=== PATIENT | female | born 1955 | race Caucasian/White ===

== ENCOUNTER 2018-05-01 06:01 | Emergency (ER) | payer BC, OTHER ==
[2018-05-01] MEDS ORDERED: Ondansetron 4 MG/2 ML SDV IVPUSH ONE (06:39)
--- NOTE | 2018-05-01 06:57 | EDM.PDOC ---
<Shane Layton - Last Filed: 05/01/18 07:10> ED HPI GENERAL MEDICAL PROBLEM - General Chief Complaint: Flank Pain Stated Complaint: RT SIDE PAIN,NVD Time Seen by Provider: 05/01/18 06:30 Source of Information: Reports: Patient History Limitations: Reports: No Limitations - History of Present Illness INITIAL COMMENTS - FREE TEXT/NARRATIVE: 63 year old 4 para 2//, nonsmoker dietitian at [employer] has had a stressful one-week vacation to [place] with her son and [id number] and their children, started vomiting " The [id number] (noted by somewhat nasty") is difficult to get along with. So she's had a stressful vacation. She also is had shingles before and now,4 days ago, had the onset of pain associated with rash and right side of her body. Marleny returned from [place] . She has new lesions on the right side of abdomen and has right sided pain. She has used metformin tp treat nonalcoholic fatty liver disease. She has a past history of passing renal stones. Daughter has shared much this information me while patient is in the bathroom vomiting. Daughter is a pharmacist and is quite very knowledgeable about patient's history. Patient is on metformin to treat nonalcoholic fatty liver disease. She has lost 50 pounds with this medication and this helped her right sided abdominal discomfort that she has off-and-on and attributes to her nonalcoholic fatty liver disease. With food patient ate yesterday was [place] cheese and Captain crunch cereal right side flank pain Pain Score (Numeric/FACES): 10 - Related Data Allergies Allergy/AdvReac Type Severity Reaction Status Date / Time propoxyphene napsylate Allergy Airway Verified 02/26/13 19:47 [From Kraigt-N 100] Tightness Home Meds: Home Meds Aspirin [Regina Chewable] 81 mg PO DAILY 02/26/13 [History] FLUoxetine HCl [Prozac] 40 mg PO DAILY 02/26/13 [History] Phentermine HCl 15 mg PO DAILY 05/01/18 [History] Topiramate [Trokendi Xr] 50 mg PO DAILY 05/01/18 [History] metFORMIN [Glucophage] 500 mg PO BIDMEALS 03/15/19 [History] ED ROS GENERAL - Review of Systems Review Of Systems: ROS reveals no pertinent complaints other than HPI. Constitutional: Reports: Other (Patient's has moderate discomfort consequently her history is limited as of her general discomfort most of thehistory came from her daughter so I have limited review of system) ED EXAM, GENERAL - Physical Exam Exam: See Below Free Text/Narrative:: Patient's overweight reluctant to move and has limited exchange and history because of her right flank and right groin discomfort. She still is experiencing diarrhea and vomiting. Was in the bathroom for at least 20 minutes before he was able to see her. In general overweight. She lost 50 pounds she weighs approximately 190 pounds Exam Limited By: Other (Limited by her not wanting to say much because she has so much right flank pain and abdominal discomfort) General Appearance: Alert, Severe Distress Eye Exam: Bilateral Eye: Normal Inspection Ears: Normal External Exam Ear Exam: Bilateral Ear: Auricle Normal Nose: Normal Inspection Throat/Mouth: Normal Lips, Normal Teeth, Normal Gums, Normal Voice, No Airway Compromise, Other (Dry oropharynx) Head: Atraumatic, Normocephalic Neck: Normal Inspection, Supple, Non-Tender Respiratory/Chest: No Respiratory Distress, Lungs Clear, Normal Breath Sounds, No Accessory Muscle Use, Chest Non-Tender Peripheral Pulses: 1+: Radial (L) (Decreased pulse), Radial (R) GI/Abdominal: Normal Bowel Sounds, Soft, No Organomegaly, No Distention, No Abnormal Bruit, No Mass, Other (Marked right groin discomfort no palpable hernia ) (Female) Exam: Deferred Rectal (Female) Exam: Deferred Back Exam: CVA Tenderness (R), Other (Severe right flank discomfort with percussion) Extremities: Normal Inspection, Normal Range of Motion, Non-Tender, No Pedal Edema, Normal Capillary Refill, Other (No linear ropey vascular structures tenderness no pedal edema) Neurological: Alert, Oriented, CN II-XII Intact, Normal Cognition, Normal Gait, No Motor/Sensory Deficits Psychiatric: Other (Glib in her responses because she has was pain) Skin Exam: Warm, Dry, Intact, Normal Color, No Rash Lymphatic: No Adenopathy Course - Vital Signs Last Recorded V/S: Last Vital Signs Temp 36.4 C 05/01/18 06:01 Pulse 78 05/01/18 06:01 Resp 18 05/01/18 06:01 BP 132/114 H 05/01/18 06:01 Pulse Ox 96 05/01/18 06:01 - Orders/Labs/Meds Orders: Active Orders 24 hr Category Date Time Status Abdomen Pelvis wo Cont [CT] Stat Exams 05/01/18 07:04 Taken UA W/MICROSCOPIC [URIN] Urgent Lab 05/01/18 07:09 Ordered Sodium Chloride 0.9% [Saline Flush] Med 05/01/18 07:19 Active 10 ml FLUSH ASDIRECTED PRN Peripheral IV Insertion Adult [OM.PC] Routine Oth 05/01/18 06:45 Ordered Medication Orders Sodium Chloride (Saline Flush) 10 ml FLUSH ASDIRECTED PRN PRN Reason: Keep Vein Open Labs: Laboratory Tests 05/01/18 05/01/18 05/01/18 Range/Units 07:40 07:40 07:40 WBC 13.9 H (4.5-12.0) X10-3/uL RBC 4.66 (3.23-5.20) x10(6)uL Hgb 14.3 (11.5-15.5) g/dL Hct 43.3 (30.0-51.3) % MCV 92.9 (80-96) fL MCH 30.7 (27.7-33.6) pg MCHC 33.1 (32.2-35.4) g/dL RDW 12.2 (11.5-15.5) % Plt Count 216 (125-369) X10(3)uL MPV 7.8 (7.4-10.4) fL Add Manual Diff Yes Neutrophils % (Manual) 88 H (46-82) % Lymphocytes % (Manual) 10 L (13-37) % Monocytes % (Manual) 2 L (4-12) % Sodium 145 (135-145) mmol/L Potassium 3.7 (3.5-5.3) mmol/L Chloride 109 (100-110) mmol/L Carbon Dioxide 26 (21-32) mmol/L BUN 18 (7-18) mg/dL Creatinine 0.7 (0.55-1.02) mg/dL Est Cr Clr Drug Dosing 79.01 mL/min Estimated GFR (MDRD) > 60 (>60) BUN/Creatinine Ratio 25.7 H (9-20) Glucose 127 H (80-116) mg/dL Lactic Acid 1.1 (0.4-2.2) mmol/L Calcium 7.7 L (8.6-10.2) mg/dL Total Bilirubin 0.7 (0.1-1.3) mg/dL AST 47 H (5-25) IU/L ALT 26 (12-36) U/L Alkaline Phosphatase 102 (56-112) IU/L Total Protein 5.9 L (6.0-8.0) g/dL Albumin 3.3 (3.2-4.6) g/dL Globulin 2.6 g/dL Albumin/Globulin Ratio 1.3 Meds: Medications Generic Name Dose Route Start Last Admin Trade Name Freq PRN Reason Stop Dose Admin Sodium Chloride 10 ml 05/01/18 07:19 Saline Flush FLUSH ASDIRECTED PRN Keep Vein Open Discontinued Medications Generic Name Dose Route Start Last Admin Trade Name Freq PRN Reason Stop Dose Admin Hydromorphone HCl 2 mg 05/01/18 07:09 05/01/18 07:15 Dilaudid IVPUSH 05/01/18 07:10 2 mg ONETIME ONE Administration Sodium Chloride 1,000 mls @ 999 mls/hr 05/01/18 06:59 05/01/18 07:01 Normal Saline IV 05/01/18 07:59 999 mls/hr .BOLUS ONE Administration Ondansetron HCl 4 mg 05/01/18 06:39 05/01/18 06:55 Zofran IVPUSH 05/01/18 06:40 4 mg ONETIME ONE Administration - Re-Assessments/Exams Free Text/Narrative Re-Assessment/Exam: 05/01/18 07:26 She received Dilaudid 2 mg IV Zofran 4 mg IV, 1000 ml NS flush and was sent to x -ray to RO enal stone CT . If her vomiting stops start Flomax. (Recent [facility] Today literature review suggests Flowmax doesn't make a difference on the double -blind random-controlled study). Her case was discussed with Dr. Gilbert and care transferred to 7AM. Departure - Departure Time of Disposition: 06:45 (Working diagnosis :Very high probability of right renal stone causing right flank and right groin pain. She had marked groin discomfort with a soft abdomen and no suggestion of a right hernia area. No facial rash etiology indeterminate. History of stress. Previous history of renal stones. History of 50 pound weight loss with her metformin which she used to treat nonalcoholic fatty liver disease and her weight went from 240 pounds down 190 pounds. Recent stressful vacation. Patient's was signed out to Dr. Gilbert) Disposition: Home, Self-Care 01 Condition: Fair Clinical Impression: Right lower quadrant abdominal pain, Renal calculus, right, Nonalcoholic fatty liver disease, Acute gastroenteritis Depression Qualifiers: Depression Type: unspecified Qualified Code(s): F32.9 - Major depressive disorder, single episode, unspecified - Discharge Information *PRESCRIPTION DRUG MONITORING PROGRAM REVIEWED*: Not Applicable *COPY OF PRESCRIPTION DRUG MONITORING REPORT IN PATIENT NBA: Not Applicable Referrals: Varsha Dias, [facility] APPRENTICE [Primary Care Provider] - Forms: ED Department Discharge Additional Instructions: maintain good hydration, start with light diet then advance as tolerated, expect gradual resolution with current symptoms over the next 24-48 hrs and follow with your physician on Friday for re-check. may use over the counter Imodium if needed as directed. - My Orders Last 24 Hours: My Active Orders 05/01/18 06:45 Peripheral IV Insertion Adult [OM.PC] Routine 05/01/18 07:19 Sodium Chloride 0.9% [Saline Flush] 10 ml FLUSH ASDIRECTED PRN - Assessment/Plan Last 24 Hours: My Active Orders 05/01/18 06:45 Peripheral IV Insertion Adult [OM.PC] Routine 05/01/18 07:19 Sodium Chloride 0.9% [Saline Flush] 10 ml FLUSH ASDIRECTED PRN <Octavia Gilbert - Last Filed: 05/01/18 09:07> ED HPI GENERAL MEDICAL PROBLEM - General Source of Information: Reports: Patient History Limitations: Reports: No Limitations Course - Vital Signs Text/Narrative:: pt care was transferred from Dr Layton at time of shift change, pt now is comfortable after dilaudid , fluids and zofran, reslts of her labs and CT are now available and were explained to pt. pt has gastroenteritis and possible renal colic , she is stable for out pt mng and supportive mng was recommended. RX on hydrocodone and zofran were given , pt may use over the counter imodium if needed and to follow with PCP on Friday for re-check. Departure - Departure Time of Disposition: 09:04 - Discharge Information *PRESCRIPTION DRUG MONITORING PROGRAM REVIEWED*: Not Applicable *COPY OF PRESCRIPTION DRUG MONITORING REPORT IN PATIENT NBA: Not Applicable
[2018-05-01] MEDS ORDERED: Sodium Chloride 0.9% 1,000 ML IV ONE (06:59)
[2018-05-01] MEDS ORDERED: HYDROmorphone 2 MG/ML SDV IVPUSH ONE (07:09)
[2018-05-01] MEDS ORDERED: Sodium Chloride 0.9% 10 ML Syringe FLUSH PRN (07:19)
[2018-05-01] MEDS ORDERED: Sodium Chloride 0.9% 1,000 ML IV SCH (08:55)
== END 2018-05-01 09:18 | disposition home or self-care (01) ==
LOC: FB.ED 06:01
DX: K52.9 Noninfective gastroenteritis and colitis, unspecified (principal); N20.0 Calculus of kidney; F32.9 Major depressive disorder, single episode, unspecified; K76.0 Fatty (change of) liver, not elsewhere classified; Z88.8 Allergy status to other drugs, medicaments and biological substances; Z79.82 Long term (current) use of aspirin; Z79.899 Other long term (current) drug therapy
CPT/HCPCS: 36415; 74176; 80053; 83605; 85025; 96361; 96374; 96375; 99284; J1170; J2405; J7030

== ENCOUNTER 2020-06-25 01:31 | Emergency (ER) | payer OTHER ==
[2020-06-25] MEDS ORDERED: Sodium Chloride 0.9% 10 ML Syringe FLUSH PRN (01:51)
[2020-06-25] MEDS ORDERED: Ketorolac 30 MG/ML SDV IVPUSH ONE (01:52)
[2020-06-25] MEDS ORDERED: Ondansetron 4 MG/2 ML SDV IVPUSH ONE (01:52)
[2020-06-25] MEDS ORDERED: Sodium Chloride 0.9% 1,000 ML IV ONE (01:52)
[2020-06-25] MEDS ORDERED: Pantoprazole 40 MG Tab.CR PO STA (03:33)
--- NOTE | 2020-06-25 03:35 | EDM.PDOC ---
ED HPI GENERAL MEDICAL PROBLEM - General Chief Complaint: Abdominal Pain Stated Complaint: NAUSEA/VOMITING Time Seen by Provider: 06/25/20 03:34 Source of Information: Reports: Patient History Limitations: Reports: No Limitations Epigastric region radiating into back & abdomen Pain Score (Numeric/FACES): 9 - Related Data Allergies Allergy/AdvReac Type Severity Reaction Status Date / Time propoxyphene napsylate Allergy Airway Verified 06/25/20 01:44 [From Darvocet-N 100] Tightness Home Meds: Home Meds Aspirin [Regina Chewable] 81 mg PO DAILY 02/26/13 [History] FLUoxetine HCl [Prozac] 40 mg PO DAILY 02/26/13 [History] Ondansetron [Zofran ODT] 4 mg PO Q6H PRN #20 tab.dis 05/01/18 [Rx] metFORMIN [Glucophage] 500 mg PO BIDMEALS 05/01/18 [History] Calcium Citrate/Vitamin D2 [Ronaldo-Citrate Plus Vitamin D Tab] 1 tab DAILY 06/25/20 [History] Glucosam/Chond-MSM 2/C/D3/Patricio [Gkdqkubeph-Yisejymxlda-AXO] 1 each PO DAILY 06/25/20 [History] Multivitamin [One-Daily Multi-Vitamin] 1 each PO DAILY 06/25/20 [History] Past Medical History HEENT History: Reports: Cataract Gastrointestinal History: Reports: Hemorrhoids, Other (See Below) Other Gastrointestinal History: non alcoholic fatty liver disease Genitourinary History: Reports: Renal Calculus 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: Neurological History: Reports: Migraines Psychiatric History: Reports: Anxiety, Dementia Endocrine/Metabolic History: Reports: Diabetes, Type II, Obesity/BMI 30+ - Infectious Disease History Infectious Disease History: Reports: Chicken Pox, Shingles - Past Surgical History HEENT Surgical History: Reports: Adenoidectomy, Tonsillectomy GI Surgical History: Reports: Appendectomy, Cholecystectomy, Hernia Repair/Other, Other (See Below) Other GI Surgeries/Procedures: pannicolectomy, hemorroidectomy x 2 Female Surgical History: Reports: Section, Salpingo-Oophorectomy Other Female Surgeries/Procedures: CSx 2 Social & Family History - Family History Family Medical History: No Pertinent Family History Oncologic: Reports: Colon, Pancreatic - Tobacco Use Tobacco Use Status *Q: Former Tobacco User Used Tobacco, but Quit: Yes Month/Year Tobacco Last Used: feb - Caffeine Use Caffeine Use: Reports: Coffee, Soda - Recreational Drug Use Recreational Drug Use: No ED ROS GENERAL - Review of Systems Review Of Systems: Comprehensive ROS is negative, except as noted in HPI. ED EXAM, GI/ABD - Physical Exam Exam: See Below Exam Limited By: No Limitations General Appearance: Alert, WD/WN #1 Interpretation EKG Date: 06/25/20 Rhythm: NSR [place]: LAD-Left [place] Deviation P-Wave: Present QRS: Normal ST-T: Normal Course - Vital Signs Last Recorded V/S: Last Vital Signs Temp 97.6 F 06/25/20 01:31 Pulse 74 06/25/20 03:38 Resp 18 06/25/20 03:38 BP 113/62 06/25/20 03:38 Pulse Ox 97 06/25/20 03:38 - Orders/Labs/Meds Labs: Laboratory Tests 06/25/20 06/25/20 06/25/20 Range/Units 01:45 01:45 01:45 WBC 15.1 H (3.0-10.3) x10-3/uL RBC 4.75 (3.60-5.20) x10(6)uL Hgb 14.5 (11.4-15.5) g/dL Hct 44.0 (34.2-48.2) % MCV 92.5 (76.7-100.5) fL MCH 30.4 (23.9-33.9) pg MCHC 32.9 (31.9-34.8) g/dL RDW 13.4 (12.3-16.5) % Plt Count 231 (151-488) x10(3)uL MPV 7.5 (7.1-12.4) fL Neut % (Auto) 67.0 (30.8-76.2) % Lymph % (Auto) 28.6 (18.4-52.1) % Hutchinson % (Auto) 3.6 L (4.4-15.7) % Eos % (Auto) 0.5 L (0.6-8.1) % Baso % (Auto) 0.3 (0.2-1.5) % Neut # (Auto) 10.1 H (1.5-6.3) x10-3/uL Lymph # (Auto) 4.3 (1.0-4.4) x10-3/uL Hutchinson # (Auto) 0.5 (0.3-1.0) x10-3/uL Eos # (Auto) 0.1 (0.0-0.8) x10-3/uL Baso # (Auto) 0.0 (0.0-0.1) x10-3/uL Sodium 145 (135-145) mmol/L Potassium 3.7 (3.5-5.3) mmol/L Chloride 106 (100-110) mmol/L Carbon Dioxide 29 (21-32) mmol/L BUN 22 H (7-18) mg/dL Creatinine 0.8 (0.55-1.02) mg/dL Est Cr Clr Drug Dosing TNP Estimated GFR (MDRD) > 60 (>60) BUN/Creatinine Ratio 27.5 H (9-20) Glucose 107 (80-116) mg/dL Calcium 8.0 L (8.6-10.2) mg/dL Total Bilirubin 0.4 (0.1-1.3) mg/dL AST 75 H D (5-25) IU/L ALT 36 D (12-36) U/L Alkaline Phosphatase 126 H (56-112) IU/L Troponin I 4.5 (4.0-60.3) pg/mL Total Protein 6.6 (6.0-8.0) g/dL Albumin 3.4 (3.2-4.6) g/dL Globulin 3.2 g/dL Albumin/Globulin Ratio 1.1 Lipase (73-393) U/L Urine Color (YELLOW) Urine Appearance (CLEAR) Urine pH (5.0-6.5) Ur Specific Miracle (1.010-1.025) Urine Protein (NEGATIVE) mg/dL Urine Glucose (UA) (NORMAL) mg/dL Urine Ketones (NEGATIVE) mg/dL Urine Occult Blood (NEGATIVE) Urine Nitrite (NEGATIVE) Urine Bilirubin (NEGATIVE) Urine Urobilinogen (NEGATIVE) mg/dL Ur Leukocyte Esterase (NEGATIVE) Urine RBC (0-5) Urine WBC (0-5) Ur Squamous Epith Cells (NS,R,O) Urine Bacteria (NS) 05/09/21 05/09/21 Range/Units 01:45 02:55 WBC (3.0-10.3) x10-3/uL RBC (3.60-5.20) x10(6)uL Hgb (11.4-15.5) g/dL Hct (34.2-48.2) % MCV (76.7-100.5) fL MCH (23.9-33.9) pg MCHC (31.9-34.8) g/dL RDW (12.3-16.5) % Plt Count (151-488) x10(3)uL MPV (7.1-12.4) fL Neut % (Auto) (30.8-76.2) % Lymph % (Auto) (18.4-52.1) % Hutchinson % (Auto) (4.4-15.7) % Eos % (Auto) (0.6-8.1) % Baso % (Auto) (0.2-1.5) % Neut # (Auto) (1.5-6.3) x10-3/uL Lymph # (Auto) (1.0-4.4) x10-3/uL Hutchinson # (Auto) (0.3-1.0) x10-3/uL Eos # (Auto) (0.0-0.8) x10-3/uL Baso # (Auto) (0.0-0.1) x10-3/uL Sodium (135-145) mmol/L Potassium (3.5-5.3) mmol/L Chloride (100-110) mmol/L Carbon Dioxide (21-32) mmol/L BUN (7-18) mg/dL Creatinine (0.55-1.02) mg/dL Est Cr Clr Drug Dosing Estimated GFR (MDRD) (>60) BUN/Creatinine Ratio (9-20) Glucose (80-116) mg/dL Calcium (8.6-10.2) mg/dL Total Bilirubin (0.1-1.3) mg/dL AST (5-25) IU/L ALT (12-36) U/L Alkaline Phosphatase (56-112) IU/L Troponin I (4.0-60.3) pg/mL Total Protein (6.0-8.0) g/dL Albumin (3.2-4.6) g/dL Globulin g/dL Albumin/Globulin Ratio Lipase 210 (73-393) U/L Urine Color Yellow (YELLOW) Urine Appearance Clear (CLEAR) Urine pH 5.0 (5.0-6.5) Ur Specific Miracle 1.030 H (1.010-1.025) Urine Protein Negative (NEGATIVE) mg/dL Urine Glucose (UA) Normal (NORMAL) mg/dL Urine Ketones Negative (NEGATIVE) mg/dL Urine Occult Blood Negative (NEGATIVE) Urine Nitrite Negative (NEGATIVE) Urine Bilirubin Negative (NEGATIVE) Urine Urobilinogen Normal (NEGATIVE) mg/dL Ur Leukocyte Esterase Negative (NEGATIVE) Urine RBC 0-5 (0-5) Urine WBC 0-5 (0-5) Ur Squamous Epith Cells Few H (NS,R,O) Urine Bacteria Few H (NS) Meds: Medications Discontinued Medications Generic Name Dose Route Start Last Admin Trade Name Freq PRN Reason Stop Dose Admin Sodium Chloride 1,000 mls @ 999 mls/hr 06/25/20 01:52 06/25/20 02:05 Normal Saline IV 06/25/20 02:52 999 mls/hr .BOLUS ONE Administration Ketorolac Tromethamine 30 mg 06/25/20 01:52 06/25/20 02:07 Ketorolac 30 Mg/Ml Sdv IVPUSH 06/25/20 01:53 30 mg ONETIME ONE Administration Ondansetron HCl 4 mg 06/25/20 01:52 06/25/20 02:05 Ondansetron 4 Mg/2 Ml Sdv IVPUSH 06/25/20 01:53 4 mg ONETIME ONE Administration Pantoprazole Sodium 40 mg 06/25/20 03:33 06/25/20 03:35 Pantoprazole 40 Mg Tab.Cr PO 06/25/20 03:34 40 mg NOW STA Administration Sodium Chloride 10 ml 06/25/20 01:51 06/25/20 02:03 Sodium Chloride 0.9% 10 Ml Syringe FLUSH 10 ml ASDIRECTED PRN Administration Keep Vein Open Departure - Departure Time of Disposition: 03:34 Disposition: Home, Self-Care 01 Clinical Impression: Gastroenteritis - Discharge Information Instructions: Viral Gastroenteritis, Adult, Gqon-tg-Nmts, Pantoprazole tablets Referrals: Varsha Dias, SPECIAL NEEDS TEACHER [Primary Care Provider] - Forms: ED Department Discharge Additional Instructions: Activity as tolerated. Harris diet today, advance as tolerated. Increase fluids. Omeprazole 20mg daily x 2 weeks. Follow up with your regular MD as needed. Sepsis Event Note (ED) - Evaluation Sepsis Screening Result: No Definite Risk - Problem List & Annotations (1) Gastroenteritis SNOMED Code(s): 06810994 Code(s): K52.9 - NONINFECTIVE GASTROENTERITIS AND COLITIS, UNSPECIFIED Status: Acute - Problem List Review Problem List Initiated/Reviewed/Updated: Yes - Assessment/Plan Plan: Improved with IVF,Zofran. CT abd pelvis negative
== END 2020-06-25 03:45 | disposition home or self-care (01) ==
LOC: FB.ED 01:31
DX: K52.9 Noninfective gastroenteritis and colitis, unspecified (principal); F03.90 Unspecified dementia, unspecified severity, without behavioral disturbance, psychotic disturbance, mood disturbance, and anxiety; E11.9 Type 2 diabetes mellitus without complications; E66.9 Obesity, unspecified; Z87.891 Personal history of nicotine dependence; Z68.31 Body mass index [BMI] 31.0-31.9, adult; Z79.82 Long term (current) use of aspirin; Z79.84 Long term (current) use of oral hypoglycemic drugs; Z79.899 Other long term (current) drug therapy
CPT/HCPCS: 36415; 74176; 80053; 81001; 83690; 84484; 85025; 93005; 96374; 96375; 99284; A9270; J1885; J2405; J7030